=== PATIENT | male | born 1985 | race Caucasian/White ===

== ENCOUNTER 2020-11-19 21:32 | Emergency (ER) | payer OTHER ==
--- NOTE | 2020-11-19 22:35 | ED Physician Documentation ---
PD HPI BACK PAIN - Stated complaint Stated Complaint: NECK/BACK PX - Chief complaint Chief Complaint: Back Pain - History obtained from History obtained from: Patient - History of Present Illness Timing - onset: How many weeks ago (3) Timing - duration: Weeks (3) Timing - details: Abrupt onset, Still present (worse again today when doing some lifting.), Waxing and waning Location: Upper, Left (lateral left lower neck extending to left suprascapular and trapezius area.) Quality: Pain, Spasm, Aching Associated symptoms: No: Fever, Weakness, Numbness Improves with: Rest Worsened by: Movement, Palpation Contributing factors: Lifting, Twisting Recently seen: Not recently seen Review of Systems Constitutional: denies: Fever, Chills Nose: denies: Rhinorrhea / runny nose, Congestion Throat: denies: Sore throat Respiratory: denies: Cough Skin: denies: Rash, Lesions Neurologic: denies: Focal weakness, Numbness, Headache PD PAST MEDICAL HISTORY - Past Medical History Past Medical History: No - Past Surgical History Past Surgical History: No - Present Medications Home Medications: Ambulatory Orders Medication Instructions Recorded Confirmed Ibuprofen [Motrin] 600 mg PO TID PRN #20 tab 11/19/20 tiZANidine [Zanaflex] 4 mg PO Q8H PRN #20 tablet 11/19/20 - Allergies Allergies/Adverse Reactions: Allergies Allergy/AdvReac Type Severity Reaction Status Date / Time No Known Drug Allergies Allergy Verified 11/19/20 21:57 - Social History Does the pt smoke?: No Smoking Status: Never smoker Does the pt drink ETOH?: Yes Does the pt have substance abuse?: No - Immunizations Immunizations are current?: Yes - POLST Patient has POLST: No PD ED PE NORMAL - Vitals Vital signs reviewed: Yes - General General: Alert and oriented X 3, Well developed/nourished, Other (appears uncomfortable with ROm of the neck or shoulder left side. ) - Neck Neck: Supple, no meningeal sign, No bony TTP, Other (tender left lateral lower neck muscle and to left suprascapular. No rash, redness, nor sores. ) - Cardiac Cardiac: RRR, No murmur - Respiratory Respiratory: No respiratory distress, Clear bilaterally - Derm Derm: Normal color, Warm and dry, No rash - Neuro Neuro: Alert and oriented X 3, No motor deficit, No sensory deficit Results - Vitals Vitals: Oxygen O2 Source Room air PD MEDICAL DECISION MAKING - ED course Complexity details: d/w patient (distribution of the pain and tenderness c/w muscular pattern. No neuro deficits. ) Departure - Departure Disposition: 01 Home, Self Care Clinical Impression: Trapezius muscle spasm Condition: Stable Record reviewed to determine appropriate education?: Yes Instructions: ED Sprain Strain Neck Follow-Up: RAQUEL Brown [Provider Group] Prescriptions: Ibuprofen [Motrin] 600 mg PO TID PRN #20 tab PRN Reason: Pain tiZANidine [Zanaflex] 4 mg PO Q8H PRN #20 tablet PRN Reason: Spasms Comments: Heat and gentle stretching for the neck. Massage and pressure point can help. Use anti-inflammatories of ibuprofen 2-3 times daily for the next several days to a week. Also tizanidine muscle relaxant 2-3 times a day for reducing muscle spasms. Activity as tolerated. Recheck if not improved completely over the next several days to a week. Discharge Date/Time: 11/19/20 23:13
[2020-11-19] MEDS ORDERED: IBUPROFEN 600 MG TABLET PO STA (22:53)
[2020-11-19] MEDS ORDERED: CHERRY SYRUP 10 ML UDC PO ONE (22:53)
[2020-11-19] MEDS ORDERED: methocarbamoL 500 MG TABLET PO STA (22:53)
[2020-11-19] MEDS ORDERED: DEXAMETHASONE 10 MG/ML VIAL PO STA (22:53)
[2020-11-19 23:13] VITALS: BP 131/80
== END 2020-11-19 23:13 | disposition home or self-care (01) ==
LOC: ED 21:32
DX: M62.838 Other muscle spasm (principal)
CPT/HCPCS: 99282; 99284; A9270